=== PATIENT | female | born 1950 | race American Indian/Alaskan Native ===

== ENCOUNTER 2016-10-15 11:49 | Outpatient (CLI) | payer MEDICARE ==
--- NOTE | 2016-10-15 12:58 | XRay Report ---
BILATERAL HAND RADIOGRAPHS: INDICATION: Osteoarthritis right hand. Trigger finger right thumb. COMPARISON: 10/13/2015 right hand radiographs. FINDINGS: AP, lateral and oblique bilateral hand radiographs demonstrate intact bony articulation. No significant soft tissue abnormality or definite new suspicious erosions. However, few overhanging osteophytes at the interphalangeal joints may again be noted, right more than left. CONCLUSION: No acute radiographic abnormality with mild arthritic changes in the hands again suspected, right more than left, as described. Please correlate. Thank you for the opportunity to participate in this patient's care.
== END 2016-10-15 11:50 | disposition home or self-care (01) ==
LOC: SPVIMAG 11:49
PROVIDERS: ATTEND Internal Medicine
DX: M19.041 Primary osteoarthritis, right hand (principal); M65.311 Trigger thumb, right thumb

== ENCOUNTER 2021-06-08 08:22 | Outpatient (CLI) | payer MEDICARE ==
--- NOTE | 2021-06-08 11:16 | Mammography Report ---
DIGITAL SCREENING MAMMOGRAM WITH CAD, 06/08/2021 CLINICAL INFORMATION / INDICATION: Routine screening mammography. SCREENING MAMMO Z12.31 TECHNIQUE: Digital bilateral 2D mammography was obtained in the craniocaudal and mediolateral obliqu e projections. This examination was interpreted with the benefit of Computer-Aided Detection analysis . COMPARISON: 10/21/2016 through 06/06/2020. FINDINGS: Breast Density: There are scattered areas of fibroglandular density. No dominant mass, suspicious calcifications, or architectural distortion in either breast. Postlumpectomy and radiation changes in the right breast are again identified. Benign calcifications related to fat necrosis on the right are more prominent. Small benign-appearing nodules in the left u pper outer quadrant are stable. There is a left biopsy clip. IMPRESSION: No mammographic evidence of malignancy. Follow up recommendation: Routine yearly BI-RADS Category 2: Benign. A "normal" or negative report should not discourage follow up or biopsy of a clinically significant f inding. A written summary of these findings will be mailed to the patient. The patient will be entered into a mammography reporting system which will generate a reminder letter for the patient's next appointmen t at the appropriate interval. The [employer] recommends yearly mammograms starting at age 40 and continuing as l nii as a woman is in good health. Breast MRI is recommended for women with an approximate 20-25% or greater lifetime risk of breast cancer, including women with a strong family history of breast or ova isa cancer or who have been treated for Hodgkin's disease. Signer Name: Osbaldo Major MD Signed: 06/08/2021 11:11 AM Workstation Name: [id number]
== END 2021-06-08 08:23 | disposition home or self-care (01) ==
LOC: SPVWC 08:22
PROVIDERS: ATTEND Surgery
DX: Z12.31 Encounter for screening mammogram for malignant neoplasm of breast (principal); N64.89 Other specified disorders of breast
CPT/HCPCS: 77067